=== PATIENT | female | born 1975 | race Caucasian/White ===

== ENCOUNTER → 2017-06-23 | Outpatient (CLI) | payer MEDICAID ==
[~2017-06-23] MED LIST: ALBU8.5H IH; AMOX-559 PO; CARB-82 PO; CLOT15CR67 TP; DOCU-416 PO; FERR324T23 PO; HYDR-385 PO; HYDR25SU51 RC; HYDR28.33 PR; KET10 PO; LEVE250T42 PO; LEVE250T63 PO; LOR5/325 PO; OMEP-125 PO; POTA20TA10 PO
== END ==
LOC: LAB 08:43
PROVIDERS: ATTEND Emergency Medicine
DX: R53.83 Other fatigue (principal)
CPT/HCPCS: 82274

== ENCOUNTER → 2017-10-01 | Outpatient (CLI) | payer MEDICAID ==
[2017-10-01 10:33] LABS: PLATELET COUNT, AUTOMATED 175 K/uL (150-450)
== END ==
LOC: LAB 10:05
PROVIDERS: ATTEND Emergency Medicine
DX: G40.209 Localization-related (focal) (partial) symptomatic epilepsy and epileptic syndromes with complex partial seizures, not intractable, without status epilepticus (principal)
CPT/HCPCS: 36415; 82040; 82247; 82310; 82374; 82435; 82565; 82947; 84075; 84132; 84155; 84295; 84450; 84460; 84520; 85025

== ENCOUNTER → 2017-10-17 | Outpatient (CLI) | payer MEDICAID ==
--- NOTE | 2017-10-17 15:00 | RADIOLOGY IMAGING REPORT ---
FACILITY: [facility] - [place] PATIENT NAME: DUC ESCALANTE : [id number] MR: [id number] V: [id number] EXAM DATE: [id number] ORDERING PHYSICIAN: JING LUND TECHNOLOGIST: Rogerio Arauz PROCEDURE:US RIGHT BREAST COMPARISON:Bilateral screening mammogram 10/17/2017 and Bilateral screening mammogram 08/17/2015. INDICATIONS:6 MO F/U History: Right breast 6mm oval mass at 10 o'clock by diagnostic mammogram. FINDINGS: Area scanned: Right breast from 8:30 o'clock to 10:30 o'clock. A complex cyst at 10 o'clock, 5cm from the nipple may correlate to the finding on the mammogram. There are 2 adjacent small cysts at 8:30 o'clock, 2cm from the nipple that measure together 6mm. A few other scattered simple cysts are seen in the area scanned. DIAGNOSTIC CATEGORY 3--PROBABLY BENIGN FINDING. RECOMMENDATIONS: FOLLOW-UP RIGHT BREAST ULTRASOUND OF THE COMPLEX CYST AT 10 O'CLOCK IN SIX MONTHS. I discussed the results and recommendation with the patient following this study. Dictated by: Shellie Means M.D. on 10/17/2017 at 13:02 Transcribed by: LASHAE on 10/17/2017 at 14:05 Approved by: Shellie Means M.D. on 10/17/2017 at 14:59 [facility]
--- NOTE | 2017-10-17 15:22 | RADIOLOGY IMAGING REPORT ---
FACILITY: [facility] PATIENT NAME: DUC ESCALANTE : [id number] MR: [id number] V: [id number] EXAM DATE: [id number] ORDERING PHYSICIAN: JING LUND TECHNOLOGIST: Carlota Acevedo PROCEDURE:BILATERAL DIAGNOSTIC DIGITAL MAMMOGRAM WITH CAD ASSISTED INTERPRETATION & 3D TOMOSYNTHESIS Views obtained: Bilateral 2D full field CC & MLO, and corresponding 3D Tomography, Bilateral 2D full field XCCL, Right magnification compression CC, MLO, and ML. COMPARISON: Bilateral screening mammogram 08/17/2015, Right breast diagnostic mammogram 08/29/2015. INDICATIONS:Follow-up Right breast microcalcifications. TISSUE DENSITY: Extremely dense, which may reduce sensitivity for breast cancer detection. FINDINGS: Loosely grouped microcalcifications in the Right breast upper outer quadrant at posterior depth are benign milk of calcium. A new Right breast oval 6mm mass has developed at 10 o'clock. Left breast has no dominant mass of suspicious calcifications. DIAGNOSTIC CATEGORY 0-NEEDS AN ADDITIONAL EVALUATION. RECOMMENDATIONS: RIGHT BREAST TARGETED ULTRASOUND WITH ATTENTION TO THE NEW OVAL MASS AT 10 O'CLOCK. IMPRESSION: BIRADS 0: Incomplete. Dictated by: Shellie Means M.D. on 10/17/2017 at 14:53 Transcribed by: LASHAE on 10/17/2017 at 15:19 Approved by: Shellie Means M.D. on 10/17/2017 at 15:21 [facility]
--- NOTE | 2017-10-17 15:23 | RADIOLOGY IMAGING REPORT ---
FACILITY: [facility] - [place], [place] PATIENT NAME: DUC ESCALANTE : [id number] MR: [id number] V: [id number] EXAM DATE: [id number] ORDERING PHYSICIAN: JING LUND TECHNOLOGIST: Carlota Acevedo PROCEDURE:BILATERAL DIAGNOSTIC DIGITAL MAMMOGRAM WITH CAD ASSISTED INTERPRETATION & 3D TOMOSYNTHESIS Views obtained: Bilateral 2D full field CC & MLO, and corresponding 3D Tomography, Bilateral 2D full field XCCL, Right magnification compression CC, MLO, and ML. COMPARISON: Bilateral screening mammogram 08/17/2015, Right breast diagnostic mammogram 08/29/2015. INDICATIONS:Follow-up Right breast microcalcifications. TISSUE DENSITY: Extremely dense, which may reduce sensitivity for breast cancer detection. FINDINGS: Loosely grouped microcalcifications in the Right breast upper outer quadrant at posterior depth are benign milk of calcium. A new Right breast oval 6mm mass has developed at 10 o'clock. Left breast has no dominant mass of suspicious calcifications. DIAGNOSTIC CATEGORY 0-NEEDS AN ADDITIONAL EVALUATION. RECOMMENDATIONS: RIGHT BREAST TARGETED ULTRASOUND WITH ATTENTION TO THE NEW OVAL MASS AT 10 O'CLOCK. IMPRESSION: BIRADS 0: Incomplete. Dictated by: Shellie Means M.D. on 10/17/2017 at 14:53 Transcribed by: LASHAE on 10/17/2017 at 15:19 Approved by: Shellie Means M.D. on 10/17/2017 at 15:21 [facility]
== END ==
LOC: MAMO 02:26
PROVIDERS: ATTEND Emergency Medicine
DX: R92.1 Mammographic calcification found on diagnostic imaging of breast (principal); N63.11 Unspecified lump in the right breast, upper outer quadrant; N60.01 Solitary cyst of right breast
CPT/HCPCS: 77061; 77062; 77065; 77066

== ENCOUNTER → 2018-04-20 | Outpatient (CLI) | payer MEDICAID ==
--- NOTE | 2018-04-21 16:41 | RADIOLOGY IMAGING REPORT ---
FACILITY: [facility] - [place] PATIENT NAME: DUC ESCALANTE : [id number] MR: [id number] V: [id number] EXAM DATE: ORDERING PHYSICIAN: JING LUND TECHNOLOGIST: Viridiana Umana RT(R)(CT) PROCEDURE:US RIGHT BREAST COMPARISON:Prior Right breast Ultrasound of 10/17/17. INDICATIONS:6 month follow-up complex cyst FINDINGS: In the 9 o'clock position of the Right breast 4cm from the nipple there is a 6.9 x 3.6 x 6.5mm cyst relatively unchanged when compared to the prior study. In the 10 o'clock position of the Right breast 5cm from the nipple there is a 6.8 x 5.2 x 6.7mm cyst with internal echo's likely representing a complex cyst it appears relatively unchanged when compared to the prior study allowing for the slight difference in imaging technique. In the 8:30 position of the Right breast 4cm from the nipple is a 3.6 x 2.3 x 3.4mm cyst. In the 9 o'clock position of the Right breast 1cm from the nipple there is a 7.8 x 4.8 x 11.3mm lobular hypoechoic structure. This appears to be at least partially cystic. I personally observed real time scanning of this area which did appear to represent a cluster of cysts with some internal satiations a 6 month follow-up of this cyst is recommended for further evaluation and of the slightly complex cyst in the 10 o'clock position. DIAGNOSTIC CATEGORY 3--PROBABLY BENIGN FINDING. RECOMMENDATIONS: SIX MONTH FOLLOW-UP ULTRASOUND: RIGHT BREAST. IMPRESSION: BIRADS 3: Probably benign finding. A 6 month follow-up Right breast Ultrasound is recommended as described above. The patient will also be due for her annual mammogram at that time. Dictated by: Loren Person M.D. on 04/20/2018 at 16:28 Transcribed by: LASHAE on 04/21/2018 at 9:54 Approved by: Loren Person M.D. on 04/21/2018 at 16:40 [facility]
== END ==
LOC: US 03:43
PROVIDERS: ATTEND Emergency Medicine
DX: R92.8 Other abnormal and inconclusive findings on diagnostic imaging of breast (principal); N60.01 Solitary cyst of right breast

== ENCOUNTER → 2018-09-07 | Outpatient (CLI) | payer MEDICAID ==
--- NOTE | 2018-09-17 15:48 | RADIOLOGY IMAGING REPORT ---
FACILITY: [facility] PATIENT NAME: DUC ESCALANTE : [id number] MR: [id number] V: [id number] EXAM DATE: [id number] ORDERING PHYSICIAN: JING LUND TECHNOLOGIST: Carlota Acevedo PROCEDURE:BILATERAL DIGITAL SCREENING MAMMOGRAM WITH CAD ASSISTED INTERPRETATION & 3D TOMOSYNTHESIS COMPARISON:Prior mammograms 10/17/17, 08/29/15, 08/17/15. INDICATIONS:screening FINDINGS: The patient returned for additional imaging on the Right breast on 09/17/18. The breasts are very dense which lowers the sensivity of mammography. The parenchymal pattern has remained stable allowing for difference in mammographic technique & patient positioning. Today's Right breast Ultrasound did demonstrate a circumscribed hypoechoic mass in the 9 o'clock position and in the 10 o'clock position of the Right breast for which a 6 month follow-up Right breast Ultrasound is recommended. DIAGNOSTIC CATEGORY 3--PROBABLY BENIGN FINDING. RECOMMENDATIONS: SIX MONTH FOLLOW-UP ULTRASOUND: RIGHT BREAST. IMPRESSION: BIRADS 3: Probably benign finding. A 6 month follow-up Right breast Ultrasound is recommended. Dictated by: Loren Person M.D. on 09/17/2018 at 14:43 Transcribed by: LASHAE on 09/17/2018 at 15:13 Approved by: Loren Person M.D. on 09/17/2018 at 15:47 [facility]
== END ==
LOC: MAMO 00:31
PROVIDERS: ATTEND Emergency Medicine
DX: Z12.31 Encounter for screening mammogram for malignant neoplasm of breast (principal)
CPT/HCPCS: 77063; 77067

== ENCOUNTER → 2018-09-17 | Outpatient (CLI) | payer MEDICAID ==
--- NOTE | 2018-09-18 11:25 | RADIOLOGY IMAGING REPORT ---
[place] [facility] [place] NAME: DUC ESCALANTE : [id number] MR: [id number] V: [id number] EXAM DATE: [id number] ORDERING PHYSICIAN: JING LUND TECHNOLOGIST: Dania Linn RDMS(ABD,OBGYN,BR),RVT PROCEDURE:US RIGHT BREAST COMPARISON:Prior Right breast Ultrasound of 04/20/18 & 10/17 INDICATIONS:Abnormal breast US FINDINGS: There are multiple cysts seen throughout the Right breast. In the 9 o'clock position of the Right breast 1cm from the nipple there is a circumscribed ovoid hypoechoic mass measuring 1.1 x 0.4 x 0.9cm. This is relatively unchanged when compared to the prior study. Also in the 9 o'clock position of the Right breast 2cm from the nipple is an ovoid circumscribed partially cystic mass measuring 0.8 x 1.5 x 0.5cm. This was not identified on the prior study. In the 10 o'clock position of the Right breast there is a circumscribed round hypoechoic nodule with faint acoustic enhancement measuring 7 x 5 x 6mm that appears relatively unchanged. DIAGNOSTIC CATEGORY 3--PROBABLY BENIGN FINDING. RECOMMENDATIONS: SIX MONTH FOLLOW-UP ULTRASOUND: RIGHT BREAST. IMPRESSION: BIRADS 3: Probably benign finding. A 6 month follow up Right breast Ultrasound is recommended to document stability of the above mentioned findings. Dictated by: Loren Person M.D. on 09/17/2018 at 14:52 Transcribed by: OMID on 09/18/2018 at 10:15 Approved by: Loren Person M.D. on 09/18/2018 at 11:24 [facility]
== END ==
LOC: US 00:37
PROVIDERS: ATTEND Emergency Medicine
DX: R92.8 Other abnormal and inconclusive findings on diagnostic imaging of breast (principal)

== ENCOUNTER → 2018-11-05 | Outpatient (CLI) | payer MEDICAID ==
[~2018-11-05] MED LIST changes: +FERR324T16 PO; -OMEP-125 PO; +OMEP-126 PO
[2018-11-05 15:46] LABS: PLATELET COUNT, AUTOMATED 215 K/uL (150-450)
== END ==
LOC: LAB 15:15
PROVIDERS: ATTEND Emergency Medicine
DX: G40.209 Localization-related (focal) (partial) symptomatic epilepsy and epileptic syndromes with complex partial seizures, not intractable, without status epilepticus (principal); I10 Essential (primary) hypertension; R53.83 Other fatigue
CPT/HCPCS: 36415; 82040; 82247; 82310; 82374; 82435; 82565; 82728; 82947; 83540; 83550; 84075; 84132; 84155; 84295; 84443; 84450; 84460; 84520; 85025